=== PATIENT | female | born 1980 | race Caucasian/White ===

== ENCOUNTER 2016-04-12 09:56 | Inpatient (IN) | payer OTHER ==
[~2016-04-12] VITALS: Ht 162.6 cm; Wt 55.9 kg
[~2016-04-12 09:56] MED LIST: DAILY VALUE1 EACH PO; VITAMIN D31000 UNI2 PO
[2016-04-12 10:29] VITALS: BP 133/76
[2016-04-12 16:07] VITALS: BP 140/82
[2016-04-12 20:18] VITALS: BP 133/79
[2016-04-12 23:13] VITALS: BP 127/87
[2016-04-13 04:04] VITALS: BP 135/76
[2016-04-13 07:11] LABS: HEMATOCRIT 39.2 % (36.0-46.0); MCHC 33.4 G/DL (30.0-36.0); MCV 92.7 FL (83-99); MEAN PLAT.VOLUME 11.2 uM^3 (9.5-12.4); PLATELET COUNT 239 K/uL (156-360); RBC DIS.WIDTH-CV 12.3 % (11.8-14.6); RBC DIS.WIDTH-SD 41.8 % (39-53); RED BLOOD COUNT 4.23 M/uL (3.80-5.20); WHITE BLOOD COUNT 12.5 K/uL (4.1-10.2)
[2016-04-13 07:35] LABS: ANION GAP 9 MEQ/L (2-14); CHLORIDE 103 MEQ/L (99-109); GFR ESTIMATE (CALCULATED) > 59 mL/min/; GLUCOSE 104 mg/dL (70-99); MAGNESIUM 1.8 mg/dl (1.3-2.7); POTASSIUM 4.3 MEQ/L (3.7-5.4); SAMPLE HEMOLYSIS CHECK 0; SAMPLE ICTERIC CHECK 0; SAMPLE LIPEMIA CHECK 0; SODIUM 137 MEQ/L (136-147); UREA NITROGEN (BUN) 7 mg/dL (9-23)
[2016-04-13 08:00] VITALS: BP 120/72
[2016-04-13] MEDS ORDERED: HYDROCODON-ACE1 EAC7 PO (08:34)
[2016-04-13 11:51] VITALS: BP 148/82
== END 2016-04-13 15:10 | disposition home or self-care (01) | DRG 621 ==
LOC: 2SOUTH 09:56 → 2EAST 09:56 → 2SOUTH 12:23 → 2EAST 16:01
PROVIDERS: Surgery
PROC: 0DB64Z3 Excision of Stomach, Percutaneous Endoscopic Approach, Vertical (ICD-10-PCS; principal; 2016-04-12)
DX: E66.01 Morbid (severe) obesity due to excess calories (principal); E55.9 Vitamin D deficiency, unspecified; G47.9 Sleep disorder, unspecified; N92.6 Irregular menstruation, unspecified; Z87.891 Personal history of nicotine dependence; Z68.41 Body mass index [BMI] 40.0-44.9, adult
CPT/HCPCS: 80048; 82948; 83735; 84100; 85027; C9113; J0330; J0690; J1100; J1170; J1644; J1650; J1815; J2250; J2270; J2405; J2550; J2710; J3010; J3480; J7120; S0020